=== PATIENT | female | born 1970 | race Caucasian/White ===

== ENCOUNTER 2017-06-10 16:33 | Inpatient (IN) | payer MEDICAID ==
[~2017-06-10] VITALS: Ht 157.5 cm; Wt 82.3 kg
[2017-06-10 20:03] LABS: CALCIUM 8.7 mg/dL (8.5-10.1); CARBON DIOXIDE 27.7 mmol/L (21-32); CHLORIDE SERUM 107 mmol/L (98-107); CREATININE SERUM 0.5 mg/dL (0.6-1.0); GFR1 > 60 mL/min; GLUCOSE SERUM 106 mg/dL (74-106); SODIUM SERUM 141 mmol/L (136-145)
[2017-06-10 20:08] LABS: ALBUMIN 3.6 g/dL (3.4-5.0); ALKALINE PHOSPHATASE 50 U/L (46-116); ALT/SGPT 18 U/L (14-59); AST/SGOT 15 U/L (15-37); BILIRUBIN TOTAL 0.3 mg/dL (0.20-1.00); CHOLESTEROL 181 mg/dL (<200); CHOLESTEROL/HDL RATIO 3.6; HDL CHOLESTEROL 50 mg/dL (40-60); LIPASE 140 IU/L (73-393); TOTAL PROTEIN, SERUM 8.2 g/dL (6.4-8.2); TRIGLYCERIDES 109 mg/dL (<150)
[2017-06-10 20:10] LABS: FREE T4 0.88 ng/dL (0.76-1.46); FREE THYROXINE INDEX 2.2 ug/dL (1.4-4.5); T4(THYROXINE) 6.2 ug/dL (4.7-13.3)
[2017-06-10 20:19] LABS: T3 TOTAL 1.07 ng/mL
[2017-06-10 20:29] LABS: microscopic required? YES; urine erythrocyte 1+ (NEGATIVE)
[2017-06-10 20:32] LABS: BASOPHIL % 0.5 % (0-2)
[2017-06-10 20:48] LABS: PLATELET COUNT 448 x10^3mcL (130-400); RED CELL DISTRIBUTION WIDTH 20.8 % (11.5-14.5)
[2017-06-10 21:04] LABS: rbc morphology (normal/abnorm) ABNORMAL (NORMAL)
[2017-06-10 23:13] VITALS: BP 141/94
[2017-06-10 23:19] VITALS: Ht 157.5 cm; Wt 82.3 kg
[2017-06-11 01:18] LABS: MAGNESIUM 2.2 mg/dL (1.8-2.4); PHOSPHOROUS 3.3 mg/dL (2.5-4.9)
[2017-06-11 01:30] LABS: IRON 11 ug/dL (50-170); RED BLOOD CELLS 4.29 M/mm3 (4.10-5.10); TOTAL IRON BINDING CAPACITY 471 ug/dL (250-450)
[2017-06-11 04:12] LABS: AMPHETAMINE QUAL UR NONE DETECTED (NEG <=1000)
[2017-06-11 05:24] VITALS: BP 108/53
[2017-06-11 06:37] LABS: CALCIUM 8.4 mg/dL (8.5-10.1); CARBON DIOXIDE 25.3 mmol/L (21-32); CHLORIDE SERUM 108 mmol/L (98-107); CREATININE SERUM 0.6 mg/dL (0.6-1.0); GFR1 > 60 mL/min; GLUCOSE SERUM 89 mg/dL (74-106); POTASSIUM SERUM 3.7 mmol/L (3.5-5.1); SODIUM SERUM 141 mmol/L (136-145)
[2017-06-11 06:44] LABS: BASOPHIL % 0.9 % (0-2); PLATELET COUNT 382 x10^3mcL (130-400); RED CELL DISTRIBUTION WIDTH 20.7 % (11.5-14.5)
[2017-06-11 06:47] LABS: rbc morphology (normal/abnorm) ABNORMAL (NORMAL)
[2017-06-11 09:24] VITALS: BP 105/53
[2017-06-11 13:16] VITALS: BP 110/38
[2017-06-11 16:03] LABS: BASOPHIL % 0.8 % (0-2)
[2017-06-11 16:09] LABS: PLATELET COUNT 404 x10^3mcL (130-400); RED CELL DISTRIBUTION WIDTH 20.3 % (11.5-14.5)
[2017-06-11 16:15] LABS: rbc morphology (normal/abnorm) ABNORMAL (NORMAL)
[2017-06-11 16:18] LABS: ovalocyte/elliptocyte 2+; tear drop cell (dacryocyte) 1+
[2017-06-11 16:23] VITALS: BP 120/38
[2017-06-11 19:35] VITALS: BP 113/68
[2017-06-12 05:27] VITALS: BP 94/59
[2017-06-12 07:03] LABS: BASOPHIL % 0.7 % (0-2)
[2017-06-12 07:09] LABS: RED CELL DISTRIBUTION WIDTH 20.3 % (11.5-14.5)
[2017-06-12 07:10] LABS: PLATELET COUNT 407 x10^3mcL (130-400)
[2017-06-12 07:14] LABS: rbc morphology (normal/abnorm) ABNORMAL (NORMAL)
[2017-06-12 07:15] LABS: ovalocyte/elliptocyte 2+; tear drop cell (dacryocyte) 1+
[2017-06-12 10:41] VITALS: BP 116/50
[2017-06-12] MEDS ORDERED: METFORMIN HCL850 MG PO (12:16)
[2017-06-12] MEDS ORDERED: NATURAL IRON65 MG PO (12:16)
[2017-06-12 12:31] VITALS: BP 116/50
== END 2017-06-12 16:30 | disposition home or self-care (01) | DRG 663 ==
LOC: ED 16:33 → DU 22:21
PROVIDERS: Family Medicine; Specialist; ADMIT Family Medicine
DX: D50.9 Iron deficiency anemia, unspecified (principal); D68.69 Other thrombophilia; E11.65 Type 2 diabetes mellitus with hyperglycemia; R77.1 Abnormality of globulin; Z68.33 Body mass index [BMI] 33.0-33.9, adult
CPT/HCPCS: 82962; 83880; 84439; J2916; J7030; Q0092